=== PATIENT | male | born 1955 | race Caucasian/White ===

== ENCOUNTER 2024-02-02 17:06 | Emergency (ER) | payer MEDICARE ==
[~2024-02-02] VITALS: Ht 185.4 cm; Wt 77.0 kg
[2024-02-02 17:13] VITALS: BP 164/114; PULSE 99; RESP 18; TEMP 98.2
[2024-02-02 17:56] LABS: BASOPHILS % 1.4 % (0.0-2.0); EOSINOPHILS % 2.8 % (0.0-5.0); HEMATOCRIT. 44.3 % (42.0-52.0); HEMOGLOBIN. 15.3 g/dL (14.0-18.0); LYMPHOCYTES % 25.8 % (20.0-50.0); MEAN CORPUSCULAR HEMOGLOBIN 33.6 pg (28.0-32.0); MEAN CORPUSCULAR HGB CONC 34.6 g/dL (31.0-37.0); MEAN CORPUSCULAR VOLUME 97.2 fL (80.0-94.0); MEAN PLATELET VOLUME 7.8 fl (7.4-10.4); MONOCYTES % 8.2 % (2.0-8.0); NEUTROPHILS % 61.8 % (40.0-76.0); PLATELET 216 x1000/uL (130-400); RED BLOOD CELL COUNT 4.56 mill/uL (4.7-6.1); RED CELL DISTRIBUTION WIDTH 14.5 % (11.6-14.6); WHITE BLOOD COUNT 7.1 x1000/uL (4.5-11.0)
[2024-02-02 18:07] LABS: ALANINE AMINOTRANSFERASE 19 IU/L (10-49); ALBUMIN 4.5 g/dL (3.2-4.8); ASPARTATE AMINOTRANSFERASE 27 IU/L (<34); BILIRUBIN TOTAL 0.3 mg/dL (0.1-1.0); CALCIUM 8.8 mg/dL (8.7-10.4); CARBON DIOXIDE 30 mEq/L (21-32); CHLORIDE 108 mEq/L (98-107); GLUCOSE 99 mg/dL (70-105); POTASSIUM 4.3 mEq/L (3.5-5.1); PROTEIN TOTAL 7.4 g/dL (6.0-8.3); SODIUM 140 mEq/L (136-145); UREA NITROGEN BLOOD 19 mg/dL (9-23)
[2024-02-02 19:25] LABS: TROPONIN I HIGH SENSITIVITY 21 ng/L (3.0-53)
[2024-02-02 20:45] LABS: TROPONIN I HIGH SENSITIVITY 20 ng/L (3.0-53)
[2024-02-02] MEDS ORDERED: HYDR453.3 TP (22:38)
== END 2024-02-02 22:50 | disposition home or self-care (01) ==
LOC: ER 17:06
DX: R06.02 Shortness of breath (principal); J44.9 Chronic obstructive pulmonary disease, unspecified; F32.9 Major depressive disorder, single episode, unspecified; I10 Essential (primary) hypertension; F20.9 Schizophrenia, unspecified
CPT/HCPCS: 36415; 71045; 80053; 84484; 85025; 93005; 99285